=== PATIENT | male | born 1980 | race Caucasian/White ===

== ENCOUNTER 2023-12-01 15:28 | Emergency (ER) | payer OTHER ==
[~2023-12-01] VITALS: Ht 188 cm; Wt 158.8 kg
[2023-12-01 15:36] VITALS: BP 159/89; TEMP 98
[2023-12-01 16:01] VITALS: O2SAT 97
== END 2023-12-01 16:02 | disposition home or self-care (01) ==
LOC: ER 15:43
DX: S00.03XA Contusion of scalp, initial encounter (principal); I10 Essential (primary) hypertension; E11.9 Type 2 diabetes mellitus without complications; W22.8XXA Striking against or struck by other objects, initial encounter; Y93.89 Activity, other specified; Y92.89 Other specified places as the place of occurrence of the external cause; Y99.8 Other external cause status